=== PATIENT | female | born 1975 | race Caucasian/White ===

== ENCOUNTER 2023-06-09 00:59 | Day surgery (SDC) | payer BC ==
[2023-06-09 11:08] VITALS: BP 122/88
[2023-06-09] MEDS ORDERED: ALLEGRA ALLERG180 MG PO (11:10)
[2023-06-09] MEDS ORDERED: Voltaren100 GM TOP (11:10)
[2023-06-09] MEDS ORDERED: ALBU90OI INH (11:11)
[2023-06-09] MEDS ORDERED: FLUT1DIS5 INH (11:12)
[2023-06-09] MEDS ORDERED: CYCL10 (11:14)
[2023-06-09] MEDS ORDERED: BREO ELLIPTA 21 EAC1 INH (11:14)
[2023-06-09] MEDS ORDERED: ESCI10 PO (11:15)
[2023-06-09] MEDS ORDERED: CITALOPRAM HBR10 MG PO (11:15)
[2023-06-09] MEDS ORDERED: MELATONIN5 M1 (11:16)
[2023-06-09] MEDS ORDERED: DICL75ER PO (11:16)
[2023-06-09] MEDS ORDERED: MONT10T PO (11:17)
[2023-06-09] MEDS ORDERED: VITAMIN D32000 UNI2 PO (11:18)
== END 2023-06-09 11:24 | disposition home or self-care (01) ==
LOC: ATC 00:59
DX: J45.50 Severe persistent asthma, uncomplicated (principal); Z88.0 Allergy status to penicillin; Z79.899 Other long term (current) drug therapy
CPT/HCPCS: 96372

== ENCOUNTER 2023-08-25 02:11 | Day surgery (SDC) | payer BC ==
[~2023-08-25 02:11] MED LIST: ALBU90OI INH; ALLEGRA ALLERG180 MG PO; BREO ELLIPTA 21 EAC1 INH; CITALOPRAM HBR10 MG PO; CYCL10; DICL75ER PO; ESCI10 PO; FLUT1DIS5 INH; MELATONIN5 M1; MONT10T PO; VITAMIN D32000 UNI2 PO; Voltaren100 GM TOP
[2023-08-25 15:12] VITALS: BP 121/89
[2023-08-25] MEDS ORDERED: Cyclobenzaprine5 MG (15:15)
[2023-08-25] MEDS ORDERED: LORA.5 (15:15)
== END 2023-08-25 16:55 | disposition home or self-care (01) ==
LOC: ATC 02:11
DX: J45.50 Severe persistent asthma, uncomplicated (principal)
CPT/HCPCS: 96372; J2356